=== PATIENT | female | born 1960 | race Caucasian/White ===

== ENCOUNTER → 2018-10-14 | Day surgery (SDC) | payer OTHER ==
[~2018-10-14] MED LIST: CYCLOBENZAPRINE10 MG PO; FENTANYL CITRATE/PF 100MCG/2 ML INJ ONE; HYOSCYAMINE 0.125 MG TAB ONE; LIDOCAINE HCL 2% LOCAL INJ 5 ML SDV VIAL INJ ONE; LISINOPRIL10 MG PO; MIDAZOLAM HCL 2 MG/2 ML VIAL ONE; PROPOFOL IV EMULSION 10 MG/ML 20 ML VIAL ONE; ZOLOFT50 MG PO
--- OUTSIDE RECORDS SUMMARY | 2018-10-14 12:43 | XMS REPORT | Summary of Care ---
Author Author Urgent Care [facility] [place] Address Unknown Phone Unavailable Encounter NUBIA Rahman(FIN) [id number] Date(s): 09/19/17 - 09/19/17 [facility] [place] [address] [place] [address] [phone] Discharge Disposition: Home or Self Care Attending Physician: Darci Hawkins MD Vital Signs Most recent to 1 oldest [Reference Range]: Height 163.83 cm (09/19/17 12:23 PM) Temperature Oral 99.7 DegF [96.4-99.1 DegF] *HI* (09/19/17 12:23 PM) Blood Pressure 138/76 mmHg [90-140/60-90 mmHg] (09/19/17 12:23 PM) Peripheral Pulse 98 bpm Rate [60-100 bpm] (09/19/17 12:23 PM) Weight 62.443 kg (09/19/17 12:23 PM) Body Mass Index 23.26 m2 (09/19/17 12:23 PM) Problem List No data available for this section Allergies, Adverse Reactions, Alerts Substance Reaction Severity Status NKDA Active Medications Bactrim DS 800 mg- 160 mg oral tablet 1 tab, PO, BID, X 10 day, # 20 tab, 0 Refill(s), Pharmacy: [facility] [id number] Start Date: 09/19/17 Stop Date: 09/29/17 Status: Completed cyclobenzaprine PO, 0 Refill(s) Start Date: 09/19/17 Status: Ordered lisinopril PO, Daily, 0 Refill(s) Start Date: 09/19/17 Status: Ordered QUEtiapine PO, 0 Refill(s) Start Date: 09/19/17 Status: Ordered sertraline PO, Daily, 0 Refill(s) Start Date: 09/19/17 Status: Ordered Results No data available for this section Immunizations No data available for this section Procedures No data available for this section Social History Social History Type Response Smoking Status Current every day smoker; Type: Cigarettes; Exposure to Tobacco Smoke None; Cigarette Smoking Last 365 Days Yes; Reg Smoking Cessation Counseling No entered on: 09/19/17 Assessment and Plan No data available for this section
--- OUTSIDE RECORDS SUMMARY | 2018-10-14 12:43 | XMS REPORT | Continuity of Care Document ---
Author Author [employer] Organization [employer] Address Unknown Phone Unavailable Care Team Providers Care Process Operator Name Role Phone [employer] Unavailable Unavailable Problems No Data Provided for This Section Medications Medication Details Route Status Patient Instructions Ordering Provider Order Date Source Sulfamethoxazole 800 MG / Trimethoprim 160 MG Oral Tablet [Bactrim] 1 tab, PO, BID, X 10 day, # 20 tab, 0 Refill(s), Pharmacy: [facility] [id number] No Longer Active 09/19/[facility] Lisinopril PO, Daily, 0 Refill(s) Active 09/19/2017 [facility] Sertraline PO, Daily, 0 Refill(s) Active 09/19/2017 [facility] cyclobenzaprine PO, 0 Refill(s) Active 09/19/2017 [facility] quetiapine PO, 0 Refill(s) Active 09/19/2017 [facility] Allergies, Adverse Reactions, Alerts No Known Medication Allergies Immunizations No Data Provided for This Section Results No Data Provided for This Section Pathology Reports No Data Provided for This Section Diagnostic Reports No Data Provided for This Section Consultation Notes No Data Provided for This Section Discharge Summaries No Data Provided for This Section History and Physicals No Data Provided for This Section Vital Signs Vital Sign Value Date Comments Source Height 163.83 cm 09/19/2017 [facility] Weight 62.443 09/19/2017 [facility] BMI Calculated 23.26 09/19/2017 [facility] Heart Rate 98 09/19/2017 [facility] Temperature Oral (F) 99.7 F 09/19/2017 [facility] Systolic (mm Hg) 138 09/19/2017 [facility] Diastolic (mm Hg) 76 09/19/2017 [facility] Encounters Location Location Details Encounter Type Encounter Number Reason For Visit Attending Provider ADM Date DC Date Status Source Outpatient [id number] [facility] MARIA G 09/19/2017 Active [facility] [place] Outpatient [id number] [facility] 09/19/2017 09/20/2017 [facility] Procedures No Data Provided for This Section Assessment and Plan No Data Provided for This Section Plan of Care No Data Provided for This Section Social History Social History Date Source Social History TypeResponse Smoking Status Current every day smoker; Type: Cigarettes; Exposure to Tobacco Smoke None; Cigarette Smoking Last 365 Days Yes; Reg Smoking Cessation Counseling No entered on: 09/19/17 09/19/2017 [facility] Family History No Data Provided for This Section Advance Directives No Data Provided for This Section Functional Status No Data Provided for This Section
[2018-10-14 18:00] VITALS: BP 116/74
--- NOTE | 2018-10-14 18:49 | Operative Report ---
DATE OF PROCEDURE: 10/14/2018 SURGEON: Teddy Gutiérrez MD PROCEDURES: Esophagogastroduodenoscopy with esophageal dilatation and biopsies and colonoscopy with polypectomy. INDICATIONS FOR EGD: Dysphagia, intermittent nausea and vomiting. INDICATIONS FOR COLONOSCOPY: Surveillance colonoscopy, personal history of colon polyps. MEDICATIONS: The patient was done under MAC, please see anesthesiologist's note. PROCEDURE IN DETAIL: With the patient in left lateral decubitus position, flexible fiberoptic Olympus gastroscope was introduced into the esophagus under direct visualization without any difficulty. There was some patchy erythema noted in distal esophagus. Minute tongues of velvety red mucosa were noted to extend proximally from the GE junction. Biopsies were obtained to rule out Perrin's. There was a mild stricture noted at the GE junction that was dilated to size 50-[place] Carter. The scope was then advanced with ease into the stomach. Mucosa overlying the antrum and the body revealed some patchy erythema and low-grade to moderate edema and biopsies were obtained and sent to stain for H pylori. The pylorus was of normal contour and shape, it was intubated with ease and the scope was advanced all the way to the second portion of the duodenum. Two minute polyps were removed per the cold biopsy forceps from the proximal second portion and two nodules in the duodenal bulb were biopsied. The scope was then withdrawn back into the stomach and retroflexed and mucosa overlying the fundus and cardia appeared to be within normal limits. The scope was then straightened out, it was subsequently withdrawn. The patient tolerated the procedure well. IMPRESSION: 1. Distal esophagitis. 2. Esophageal stricture at GE junction dilated to size 50-[place] Carter. 3. Rule out Perrin esophagus. 4. Gastritis, biopsied. Biopsies sent to stain for Helicobacter pylori. 5. Duodenal bulb nodules, biopsied. 6. Duodenal polyps, proximal second portion, removed with the cold biopsy forceps. PLAN: Follow up histology. Initiate Protonix 40 mg one p.o. q.a.m. a.c. PROCEDURE IN DETAIL: The patient was then turned around after adequate lubrication of the anal canal, flexible fiberoptic Olympus colonoscope was inserted into the rectum with ease and advanced all the way to the cecum. A minute polyp was removed with the cold biopsy forceps from the cecum. The scope was then withdrawn slowly and two polyps were removed per cold snare polypectomy from the ascending colon. The transverse as well as the descending grossly appeared to be within normal limits. Diverticular disease was noted in the left colon. A total of 13 polyps were removed from the sigmoid colon. Three per snare polypectomy and 10 per hot biopsy forceps and 10 polyps were removed from the rectum, one per snare polypectomy and 9 per hot biopsy forceps. The scope was then retroflexed into the distal rectum and small internal hemorrhoids were noted, none of which was actively bleeding. The scope was then straightened out, it was subsequently withdrawn. The patient tolerated the procedure well. A total of 26 polyps were removed. IMPRESSION: 1. Cecal polyp, removed per cold biopsy forceps. 2. Ascending colon polyps x2, removed per cold snare polypectomy. 3. Diverticulosis. 4. Sigmoid colon polyps x13 , 3 snared and 10 hot biopsied. 5. Diverticulosis. 6. Rectal polyps x10, 1 snared and 9 hot biopsied. 7. Internal hemorrhoids, none actively bleeding. PLAN: Follow up histology. Would need a repeat colonoscopy in 2 to 3 months to remove synchronous polyps. A total of 26 polyps were removed. Teddy Gutiérrez MD [facility] [place] /[id number] cc: Balbir Smith MD
== END | disposition home or self-care (01) ==
LOC: OR 12:41
PROVIDERS: ATTEND Internal Medicine Gastroenterology
DX: D12.2 Benign neoplasm of ascending colon (principal); D12.0 Benign neoplasm of cecum; D12.5 Benign neoplasm of sigmoid colon; R11.0 Nausea; R10.10 Upper abdominal pain, unspecified; R13.10 Dysphagia, unspecified; I10 Essential (primary) hypertension; M19.90 Unspecified osteoarthritis, unspecified site; J44.9 Chronic obstructive pulmonary disease, unspecified; K22.2 Esophageal obstruction; K63.5 Polyp of colon; K57.30 Diverticulosis of large intestine without perforation or abscess without bleeding; K62.1 Rectal polyp; K64.8 Other hemorrhoids; K29.50 Unspecified chronic gastritis without bleeding; K21.0 Gastro-esophageal reflux disease with esophagitis; Z01.810 Encounter for preprocedural cardiovascular examination
CPT/HCPCS: 43239; 43450; 45380; 45384; 45385; 93005; J2001; J2250; J2704; J3010; 45378

== ENCOUNTER → 2019-11-23 | Day surgery (SDC) | payer OTHER ==
[2019-11-20 12:24] LABS: BASOPHILS % 0.6 % (0.0-1.0); EOSINOPHILS # (AUTO) 0.1 (0.0-0.4); EOSINOPHILS % 1.7 % (0.0-6.0); HEMATOCRIT 40.4 % (34.2-44.1); HEMOGLOBIN 13.6 g/dL (12.0-16.0); LYMPHOCYTES # (AUTO) 2.5 (1.0-3.2); LYMPHOCYTES % 35.8 % (18.0-39.1); MEAN CORPUSCULAR HGB CONC 33.7 g/dL (31-35); MEAN CORPUSCULAR VOLUME 95.1 fL (81-99); MONOCYTES # (AUTO) 0.5 (0.2-0.8); NEUTROPHILS # (AUTO) 3.8 (2.1-6.9); NEUTROPHILS % 54.6 % (38.7-80.0); PLATELET COUNT 270 x10e3/uL (140-360); RED BLOOD COUNT 4.25 x10e6/uL (3.6-5.1); RED CELL DISTRIBUTION WIDTH 11.9 % (11.7-14.4)
[2019-11-20 12:34] LABS: INR 0.9; PROTHROMBIN TIME 12.6 seconds (11.9-14.5)
[2019-11-20 12:44] LABS: ALANINE AMINOTRANSFERASE 10 IU/L (0-55); ALBUMIN 3.9 g/dL (3.5-5.0); ALBUMIN/GLOBULIN RATIO 1.3 (0.8-2.0); ALKALINE PHOSPHATASE 92 IU/L (40-150); ANION GAP 12.7 mmol/L (8-16); BLOOD UREA NITROGEN 6 mg/dL (7-26); BUN/CREATININE RATIO 9 (6-25); CALCIUM 8.8 mg/dL (8.4-10.2); CARBON DIOXIDE 26 mmol/L (22-29); CHLORIDE 101 mmol/L (98-107); CREATININE, SERUM 0.69 mg/dL (0.57-1.11); EST GLOMERULAR FILTRATION RATE > 60 ML/MIN (60-); GLUCOSE 89 mg/dL (74-118); POTASSIUM 3.7 mmol/L (3.5-5.1); SODIUM 136 mmol/L (136-145)
[~2019-11-23] VITALS: Ht 165.1 cm; Wt 63.5 kg
[2019-11-23] VITALS (7 sets, daily range): BP systolic 122–150; BP diastolic 66–86
[~2019-11-23] MED LIST changes: +AMLODIPINE BESYL5 MG PO; +HEPARIN SOD (PORCINE) 1000 UNIT/ML 30ML ONE; +HEPARIN SOD/SOD CHLORIDE 2,000 ML ONE; -HYOSCYAMINE 0.125 MG TAB ONE; +IOPAMIDOL 370 MG/ML 200 ML INFUS..BTL INJ ONE; +LIDOCAINE HCL 2% LOCAL 20 ML VIAL ONE; -LIDOCAINE HCL 2% LOCAL INJ 5 ML SDV VIAL INJ ONE; +MELATONIN PO; +METOPROLOL SUCC25 MG PO; -PROPOFOL IV EMULSION 10 MG/ML 20 ML VIAL ONE; +PROZAC20 MG PO; +SODIUM CHLORIDE 0.9% 1000ML 1,000 ML ONE; +TYLENOL WITH C1 EACH PO; +VENTOLIN HFA18 GM INH; +VERAPAMIL HCL 2.5 MG/ML 2 ML VIAL ONE
== END | disposition home or self-care (01) ==
LOC: CATH LAB 06:05
PROVIDERS: ATTEND Internal Medicine
DX: I25.10 Atherosclerotic heart disease of native coronary artery without angina pectoris (principal); R94.39 Abnormal result of other cardiovascular function study; R00.2 Palpitations; I10 Essential (primary) hypertension; J44.9 Chronic obstructive pulmonary disease, unspecified; M19.90 Unspecified osteoarthritis, unspecified site; F17.210 Nicotine dependence, cigarettes, uncomplicated; Z01.812 Encounter for preprocedural laboratory examination; Z11.59 Encounter for screening for other viral diseases; Z82.49 Family history of ischemic heart disease and other diseases of the circulatory system
CPT/HCPCS: 36415; 80053; 85025; 85610; 93458; C1769; C1887; J1644; J2001; J2250; J3010; J7030; Q9967; U0002; 99152; 99153